=== PATIENT | male | born 1965 | race Caucasian/White ===

== ENCOUNTER 2017-09-04 | Day surgery (SDC) | END 2017-09-04 16:30 | disposition home or self-care (01) ==

== ENCOUNTER 2024-03-17 16:44 | Emergency (ER) | payer OTHER ==
[~2024-03-17] VITALS: Ht 182.9 cm; Wt 140.6 kg
[~2024-03-17 16:44] MED LIST: CARI350 PO; CEPH500 PO; CIPR500 PO; CYCL10 PO; Crutch1 EACH MISC; HYDACE5 PO; HYDCHL12.5 PO; HYDCHL25 PO; LEVSOD100 PO; LISI20 PO; NAPR550 PO; Naprosyn500 MG PO; Norco 5-325 Ta1 EACH PO; Percocet 5-3251 EACH PO; VITAMIN D
[2024-03-17 17:10] VITALS: BP 175/106
[2024-03-17] MEDS ORDERED: Norco 5-325 Ta1 EACH PO (17:13)
== END 2024-03-17 17:15 | disposition home or self-care (01) ==
LOC: ER 16:44
DX: M16.12 Unilateral primary osteoarthritis, left hip (principal); I10 Essential (primary) hypertension; E78.00 Pure hypercholesterolemia, unspecified; F17.200 Nicotine dependence, unspecified, uncomplicated; Z79.899 Other long term (current) drug therapy; Z59.89 Other problems related to housing and economic circumstances
CPT/HCPCS: 99283